=== PATIENT | female | born 1990 | race Caucasian/White ===

== ENCOUNTER → 2017-08-12 | Outpatient (CLI) | payer OTHER ==
[2015-05-15 13:11] VITALS: BP 96/53
--- NOTE | 2017-08-12 10:26 | RAD ---
Exam: Right shoulder three views History: 27-year-old male with right shoulder pain Comparison: None Findings: Three views of the right shoulder are radiographically normal with no acute bony abnormalit y or significant degenerative change identified. IMPRESSION: Negative views of right shoulder. Reported By:
--- NOTE | 2017-08-12 10:28 | RAD ---
Exam: Cervical spine, complete History: 27-year-old female with neck and shoulder pain Comparison: None Findings: There is straightening of the cervical spine with loss of the usual cervical lordosis. This may be on the basis of either muscle spasm or patient positioning. There is no evidence of vertebral body offset however. Cervical disc spaces are maintained. On the oblique views, neural foramina are widely patent bilaterally with no evidence of significant bony impingement. Vertebral body heights ar e maintained. No acute bony abnormality is seen on this exam. IMPRESSION: Straightening of the cervical spine may reflect either patient positioning or muscle spasm. Otherwise unremarkable cervical spine radiographs. Reported By:
== END ==
LOC: RAD 09:03
PROVIDERS: ATTEND Orthopaedic Surgery
DX: M25.511 Pain in right shoulder (principal)
CPT/HCPCS: 72050; 73030

== ENCOUNTER 2019-02-03 06:13 | Inpatient (IN) ==
[2019-02-03] MEDS ORDERED: PITOCIN ONE (06:30)
[2019-02-03] MEDS ORDERED: D5LR 1L W PITOCIN 10 UNITS/L 10 UNITS/1,000 ML BAG IV ONE (06:30)
[2019-02-03] MEDS ORDERED: D5 1/2 NS 1L W PITOCIN 20 UNITS/L 20 UNITS/1,000 ML BAG IV ONE (06:30)
[2019-02-03] MEDS ORDERED: D5 1/2 NS 1000 ML 1,000 ML ONE (06:30)
[2019-02-03] MEDS ORDERED: ZOFRAN INJ 4 MG VIAL ONE (06:42)
--- NOTE | 2019-02-03 07:30 | DR.OB ---
OB Quick Note - Assessment/Plan Assessment/Plan: L&D 02/03/19 at 6:45am S-No complaint. O-Afebrile,VSS YTT=036 with good LTV, +accel, no decel. CTX=none CVX=2-3cm/50%/0/VTX AROM with clear fluid. IUPC and FSE placed. A-IUP at 39 1/7 weeks for induction P-Begin pitocin induction Anticipate
[2019-02-03] MEDS ORDERED: PITOCIN IVP ONE (07:33)
[2019-02-03] MEDS ORDERED: MORPHINE SULFATE INJ 2 MG INJ IVP PRN (07:33)
[2019-02-03] MEDS ORDERED: D5 1/2 NS 1000 ML 1,000 ML IV SCH (07:33)
[2019-02-03] MEDS ORDERED: REGLAN INJ 10 MG VIAL IVP PRN (07:33)
[2019-02-03] MEDS ORDERED: NUBAIN INJ 200 MG VIAL MULTIDOSE IVP PRN (07:33)
[2019-02-03] MEDS ORDERED: PHENERGAN INJ 25 MG IM PRN ×2 (07:33→13:13)
[2019-02-03] MEDS ORDERED: D5LR 1L W PITOCIN 10 UNITS/L 10 UNITS/1,000 ML BAG IV PRN (07:33)
[2019-02-03] MEDS ORDERED: LR 1000 ML IV 1,000 ML ONE (08:19)
[2019-02-03] MEDS ORDERED: FENTANYL INJ 100 mcg ONE (08:19)
[2019-02-03] MEDS ORDERED: NAROPIN EPIDURAL 0.2% + FENTANYL 90MCG 60 ML EPI ONE (08:20)
[2019-02-03] MEDS ORDERED: EPHEDRINE SULFATE INJ ONE (08:56)
--- NOTE | 2019-02-03 13:13 | DR.OB ---
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 Head delivered over intact perineum. No nuchal cord. Nose and mouth bulb suctioned. Body delivered over intact perineum with late meconium noted. Cord clamped x 2 and cut. Infant handed to attendant. Cord sent for gases. Placenta delivered spontaneously / intact / 3 vessel cord. A small midline second degree tear noted and repaired with 0-vicryl in usual fashion. No CVX tears noted. Viable male infant, VTX/OA, wt=6'3" and 9/9, stable to NBN. Mother stable to RR. EIV=172hi.
[2019-02-03] MEDS: D5 1/2 NS 1000 ML 1,000 ML with PITOCIN 20 UNITS IV SCH ×4 (13:50→22:46)
[2019-02-03] MEDS ORDERED: AMBIEN PO PRN (14:09)
[2019-02-03] MEDS ORDERED: ADACEL or BOOSTRIX TDaP VACCINE IM ONE (14:09)
[2019-02-03] MEDS ORDERED: DERMOPLAST SPRAY TOP PRN (14:09)
[2019-02-03] MEDS ORDERED: MILK OF MAGNESIA PO PRN (14:09)
[2019-02-03] MEDS: ZANTAC PO SCH (21:05)
[2019-02-04] MEDS: MOTRIN TAB 800 MG PO PRN ×3 (00:39→16:47)
[2019-02-04] MEDS ORDERED: ADACEL or BOOSTRIX TDaP VACCINE IM ONE (02:17)
[2019-02-04] MEDS: D5 1/2 NS 1000 ML 1,000 ML with PITOCIN 20 UNITS IV SCH ×4 (05:27→18:14)
[2019-02-04 06:12] LABS: HEMOGLOBIN 9.6 g/dL (12.0-16.0)
[2019-02-04] MEDS: PRENATAL PLUS PO SCH (08:10)
[2019-02-04] MEDS: ZANTAC PO SCH ×2 (08:10→20:06)
[2019-02-04] MEDS: COLACE CAP 100 MG PO SCH ×2 (09:27→20:06)
[2019-02-04] MEDS: FERROUS GLUCONATE PO SCH (16:47)
[2019-02-05] MEDS: MOTRIN TAB 800 MG PO PRN ×2 (00:26→09:24)
[2019-02-05] MEDS: FERROUS GLUCONATE PO SCH (06:08)
[2019-02-05 08:05] VITALS: BP 121/68
[2019-02-05] MEDS: ZANTAC PO SCH (09:05)
[2019-02-05] MEDS: PRENATAL PLUS PO SCH (09:05)
[2019-02-05] MEDS: COLACE CAP 100 MG PO SCH (09:05)
== END 2019-02-05 12:45 | disposition home or self-care (01) | DRG 807 ==
LOC: LD 06:13 → OBS 14:12 → MED/SURG 14:12 → UNDODISIN 02-05 12:45
PROVIDERS: ADMIT Specialist; ATTEND Specialist
DX: O99.613 Diseases of the digestive system complicating pregnancy, third trimester; O71.1 Rupture of uterus during labor; Z37.0 Single live birth; Z3A.39 39 weeks gestation of pregnancy; Z23 Encounter for immunization
CPT/HCPCS: 36415; 59409; 85014; 85018; 90715; A4216; A4222; S0197; J2405; J2590; J3010; J3490; J7120; S5010